=== PATIENT | female | born 1955 | race African-American/Black ===

== ENCOUNTER 2020-12-05 11:05 | Inpatient (IN) | payer OTHER ==
[~2020-12-05] VITALS: Ht 162.6 cm; Wt 87.7 kg
[2020-12-05] VITALS (7 sets, daily range): BP systolic 84–134; BP diastolic 26–97
--- NOTE | 2020-12-05 11:33 | NUR ---
1118 100MG ETOMIDATE GIVEN 1119 80MG ROCC GIVEN 1119 8.0 ETTUBE PLACED 22@ LIP
[2020-12-05 11:42] LABS: BE(vivo) 2.5 mmol/L (-2 to +3); HCO3 28.4 mmol/L (22.0-26.0); PCO2 48.8 mmHg (35.0-45.0); PO2 126.5 mmHg (80.0-100.0); pH 7.382 (7.360-7.450); sO2 98.4 % (92.0-98.0)
[2020-12-05 12:06] LABS: HEMATOCRIT 36.1 % (37.0-47.0); HEMOGLOBIN 11.1 gm/dL (12.0-15.0); MCH 26.2 pg (26.0-34.0); MCHC 30.9 g/dL (28.0-37.0); MCV 84.8 fL (80.0-100.0); PLATELET COUNT 383 thou/uL (150-400); RBC 4.25 mil/uL (4.20-5.00); RDW 18.6 % (10.5-14.5); WBC 21.9 thou/uL (4.0-11.0)
[2020-12-05 12:17] LABS: ANION GAP 4 mmol/L (7-16); BUN 35 mg/dL (7-18); CALCIUM 9.1 mg/dL (8.5-10.1); CHLORIDE 107 mmol/L (98-107); CO2 32 mmol/L (21-32); CREATININE 1.1 mg/dL (0.6-1.0); GLUCOSE 200 mg/dL (74-106); POTASSIUM 4.5 mmol/L (3.5-5.1); SODIUM 143 mmol/L (136-145)
[2020-12-05 12:20] LABS: INR 1.1; PROTIME 11.4 Seconds (9.3-11.4)
[2020-12-05 12:28] LABS: ALBUMIN 2.3 g/dL (3.4-5.0); SGOT 31 U/L (15-37); SGPT 33 U/L (30-65); TOTAL BILIRUBIN 0.3 mg/dL (0.2-1.0); TOTAL PROTEIN 6.2 g/dL (6.4-8.2); TROPONIN-I <0.06 ng/mL (<0.06)
[2020-12-05 12:48] LABS: URINE BILIRUBIN NEGATIVE (Negative); URINE BLOOD TRACE (Negative); URINE CLARITY CLEAR; URINE COLOR YELLOW; URINE GLUCOSE-RANDOM* 1+ (Negative); URINE KETONES NEGATIVE (Negative); URINE PROTEIN (DIPSTICK) TRACE (Negative); URINE SPECIFIC GRAVITY 1.015 (1.005-1.035); URINE UROBILINOGEN 0.2 E.U./dl (0.2-1.0)
[2020-12-05 12:49] LABS: URINE LEUKOCYTES-REFLEX 3+ (Negative); URINE NITRITE-REFLEX POSITIVE (Negative)
[2020-12-05 13:02] LABS: HYALINE CASTS 0-3 Few /LPF (None Seen); MUCUS 4-6 Moderate strn/LPF (None Seen); SQUAMOUS 4-10 Moderate /LPF (0-3)
[2020-12-05 13:03] LABS: BACTERIA-REFLEX >30 Many /HPF (None Seen); CRYSTALS None Seen /LPF (None Seen); URINE RBC 0-2 Rare /HPF (0-2); WBC CLUMPS Occasional (None Seen)
[2020-12-05 14:27] LABS: ABSOLUTE NEUTROPHILS 19.7 thou/uL (1.4-8.2); ANISOCYTOSIS 1+
--- NOTE | 2020-12-05 15:48 | NUR ---
VAT CONSULTED FOR CVAD. RIGHT NECK IS BRUISED AND HAS EDEMA UPON ASSESSMENT. LIJ IS WIDELY PATENT WITH USG. 25CM 6FR TL POWER JACC INSERTED TO 5CM EXTERNAL. STAT CXR ORDERED. BLEEDING AT SITE SO GAUZE APPLIED.
--- NOTE | 2020-12-05 17:07 | NUR ---
CXR LIJ TOO DEEP WITHDREW 2 CM, NOW RELEASED FOR IMMEDIATE USE PER PROTOCOL
--- NOTE | 2020-12-05 18:12 | NUR ---
PT ARRIVED TO ED WITH BANDAGE IN PLACE ON LEFT KNEE, ABRASION NOTED. PT ALSO HAD 2 BANDAIDS APPLIED TO BUTTOCKS COVERING STAGE I PRESSURE SORE.
[2020-12-05 18:38] LABS: CHOLESTEROL 159 mg/dL (<200); HDL CHOLESTEROL 62 mg/dL (>40); LDL CHOLESTEROL 87 mg/dL (<100); TC:HDL 2.6 Ratio (Not establshd); TRIGLYCERIDE 52 mg/dL (<150); VLDL 10 mg/dL (<40)
[2020-12-05 19:02] LABS: FOLIC ACID 5.8 ng/mL (8.6-58.9)
[2020-12-05] MEDS ORDERED: AMLODIPINE BESY10 MG PER TUBE (21:49)
[2020-12-05] MEDS ORDERED: CARAFATE 1 GM TA1 G1 PER TUBE (21:49)
[2020-12-05] MEDS ORDERED: FUROSEMIDE 20 M20 M1 PER TUBE (21:50)
[2020-12-05] MEDS ORDERED: CLOPIDOGREL75 MG PER TUBE (21:50)
[2020-12-05] MEDS ORDERED: FLUOXETINE HCL40 MG PER TUBE (21:50)
[2020-12-05] MEDS ORDERED: METOCLOPRAMIDE10 MG PER TUBE (21:52)
[2020-12-05] MEDS ORDERED: LISINOPRIL10 MG PER TUBE (21:52)
[2020-12-05] MEDS ORDERED: LIPITOR 40 MG T40 M1 PER TUBE (21:52)
[2020-12-05] MEDS ORDERED: LANTUS SOL100 UNIT/1 (21:52)
[2020-12-05] MEDS ORDERED: METOPROLOL TART25 MG PER TUBE (21:54)
[2020-12-05] MEDS ORDERED: POTASSIUM CHLO20 ME2 PO (21:54)
[2020-12-05] MEDS ORDERED: SPIRONOLACTONE25 MG PER TUBE (21:54)
[2020-12-05] MEDS ORDERED: PROTONIX40 M2 PER TUBE (21:54)
[2020-12-05] MEDS ORDERED: VELTASSA8.4 GM PO (21:55)
[2020-12-06] VITALS (83 sets, daily range): BP systolic 65–162; BP diastolic 20–53
[2020-12-06 04:58] LABS: HEMATOCRIT 36.3 % (37.0-47.0); HEMOGLOBIN 11.4 gm/dL (12.0-15.0); MCH 26.7 pg (26.0-34.0); MCHC 31.5 g/dL (28.0-37.0); MCV 84.7 fL (80.0-100.0); RBC 4.29 mil/uL (4.20-5.00); RDW 18.4 % (10.5-14.5); WBC 18.9 thou/uL (4.0-11.0)
[2020-12-06 05:13] LABS: CALCIUM 8.9 mg/dL (8.5-10.1); CREATININE 1.5 mg/dL (0.6-1.0)
--- NOTE | 2020-12-06 05:30 | NUR ---
PT ARRIVED TO ICU 2244, ADMISSION AND ASSESSMENT COMPLETED. PT VENTILATED, OG/PAT/IJ IN PLACE, RUNNING LEVOPHED AND PROPOFOL GTT. FEBRILE AT 102.2 AXI. FREQ TITRATION UP OF LEVO TO MAINTAIN BP. FIO2 DECREASED FROM 100% TO 80% AT 2344. 0330-SPOKE W/ASE MASTER MECHANIC CONIGLIO REGARDING POSITIVE SEPSIS SCREEN, CONTINUING TO HAVE INCREASED TEMPS, AND GRADUAL INCREASE IN HR. OBTAINED ORDER FOR FLUIDS, TYLENOL SUPPOSITORY, CORINNE GTT D/T HIGH LEVEL OF LEVO RUNNING. RECTAL TEMP PROBE PLACED, GAVE TYLENOL SUPP W/NO CHANGE, ADDED ICE PACKS. HR SHOWS GRADUAL DECREASE W/ADDITION OF FLUIDS.
[2020-12-06 05:31] LABS: HCO3 21.8 mmol/L (22.0-26.0); PCO2 34.2 mmHg (35.0-45.0); PO2 106.8 mmHg (80.0-100.0); pH 7.422 (7.360-7.450)
[2020-12-06 05:33] LABS: POTASSIUM 5.3 mmol/L (3.5-5.1)
--- NOTE | 2020-12-06 10:18 | NUR ---
ASSUMED CARE AT 0700 THIS MORNING, ASSESSMENT AND VITAL SIGNS COMPLETED PER ICU PROTOCOL. RN WILL CONTINUE TO MONITOR.
[2020-12-07] VITALS (67 sets, daily range): BP systolic 91–151; BP diastolic 29–54
[2020-12-07 03:05] LABS: HEMATOCRIT 31.7 % (37.0-47.0); HEMOGLOBIN 9.7 gm/dL (12.0-15.0); MCH 25.9 pg (26.0-34.0); MCHC 30.7 g/dL (28.0-37.0); MCV 84.3 fL (80.0-100.0); RBC 3.76 mil/uL (4.20-5.00); RDW 18.3 % (10.5-14.5); WBC 19.7 thou/uL (4.0-11.0)
[2020-12-07 03:13] LABS: CALCIUM 8.5 mg/dL (8.5-10.1); CREATININE 1.2 mg/dL (0.6-1.0)
[2020-12-07 03:19] LABS: POTASSIUM 3.7 mmol/L (3.5-5.1)
--- NOTE | 2020-12-07 20:17 | NUR ---
ASSUMED CARE AT 0700, ASSESSMENT AND VITAL SIGNS COMPLETED PER ICU PROTOCOL. DR. JOSUE ROUNDED THIS AM, PLAN OF CARE DISCUSSED. PT'S BEDSIDE THIS AFTERNOON, SPOKE WITH DR. WRIGHT.
[2020-12-08] VITALS (73 sets, daily range): BP systolic 112–161; BP diastolic 32–58
--- NOTE | 2020-12-08 02:57 | NUR ---
PATIENT REMAINS INTUBATED AND ON NO SEDATION. PATIENT HAS POSTIVIE CORNEAL/COUGH/GAG, OCCASION SPONTANEOUS EYE OPENING AND WILL OCCASIONALLY MOVE RIGHT HAND/ARM TOWARDS CHEST. PATIENT REQUIRED LEVO R/T HYPOTENSION FOR APPROX 1 HR AT 2238. PATIENT ASLO HAD DROP IN URINE OUTPUT THROUGHOUT THE DAY AND INTO THIS SHIFT. GRANITE BLOCK PAVER RENETTA NOTIFIED AND BOLUS OF 500CC NS WAS ORDERED. LEVO DRIP WAS ABLE TO BE WEANED POST BOLUS BUT URINE OUTPUT REMAINS INADEQUATE. BM X2 THIS SHIFT. SEE MAR/ICU CHARTING FOR ADDITIONAL DETAILS. CONTINUE TO FOLLOW NURSING POC.
[2020-12-08 03:47] LABS: HEMOGLOBIN 8.4 gm/dL (12.0-15.0); MCH 26.5 pg (26.0-34.0); MCHC 31.1 g/dL (28.0-37.0); RBC 3.18 mil/uL (4.20-5.00); RDW 18.7 % (10.5-14.5)
[2020-12-08 03:58] LABS: CALCIUM 8.7 mg/dL (8.5-10.1); CREATININE 1.2 mg/dL (0.6-1.0); POTASSIUM 3.4 mmol/L (3.5-5.1)
--- NOTE | 2020-12-08 07:20 | EKG ---
[place] [address] [facility] [address] ELECTROCARDIOGRAM REPORT Name: EMERY LOVE Room #: 241-P ADM IN M.R.#: [id number] Admission: 12/05/20 Attend Phys: Art Shell MD Discharge: Date of : 57 Report #: [id number] [facility] Test Date: 2020-12-05 Test Time: 12:41:00 Pat Name: EMERY LOVE Department: Room: 241 Gender: F Dispatch Associate: RONNY : 1955 Requested By: Case Villalobos Order Number: [id number] : Onur Mortensen Measurements Intervals [place] Rate: 60 P: [place]: QRS: 53 QRSD: 106 T: 57 QT: 652 QTc: 652 Interpretive Statements Artifact, suspect Atrial fibrillation Probable left ventricular hypertrophy Nonspecific T abnrm, anterolateral leads Prolonged QT interval No previous ECG available for comparison Electronically Signed On 12-08-2020 7:19:57 CDT by Onur Mortensen [email or web address] <ELECTRONICALLY SIGNED> By: Onur Mortensen MD, [facility] 12/08/20 0719 1241 1241 Onur Mortensen MD, FACC /EPI
--- NOTE | 2020-12-08 12:13 | NUR ---
TF recommendations: Vital AF is out of stock until 12/09. Use vital HP today, 12/08 at 30ml/hr and transition to vital AF 1.2 on 12/09 with goal of 45ml/hr.
[2020-12-08 12:42] LABS: BE(vivo) -4.3 mmol/L (-2 to +3); HCO3 20.6 mmol/L (22.0-26.0); PCO2 36.9 mmHg (35.0-45.0); PO2 61.2 mmHg (80.0-100.0); pH 7.365 (7.360-7.450); sO2 90.9 % (92.0-98.0)
--- NOTE | 2020-12-08 13:24 | NUR ---
WOUND CONSULT; THERE IS A STAGE 2 PRESSURE INJURY TO THE SACRUM. THERE IS BRUISING AN NON VIABLE TISSUE IN THE WOUNDBED. THERE IS SCANT SEROSANGINOUS DRAINAGE. THE LEFT KNEE IS A SKIN TEAR TYPE INUJURY WITH NO ACURE S/S OF INFECTION,A SMALL AMOUNT OF SEROSANGINOUS DRAINAGE IS SEEN. RECCOMENDATATIONS; -SACRUM APPLY ZGUARD COVER WITH A SACRAL FOAM DRESSING CHANGE M/W/F PRN -LEFT KNEE APPLY A BORDER FOAM DRESSING CHANGE M/W/F PRN. DISCUSSED WITH FLORECITA.
--- NOTE | 2020-12-08 14:09 | NUR ---
chart review. unable to visit with pt rt on vent. discuss during am rounds.h/x of stroke. cm spoke with her spouse valerie [phone], via phone call. intro to cm and dcp. he reported he no longer works, he has to help her at home. has [facility] and they helping him to found some more help in house, since it is just him and providing all cares, he needs some help. only been home from [facility] week. she has wheel chair, that needs to be looked at, since she fallen out of wheel chair before. have 6 steps but she on the lower level of home and take her in through garage there is no steps. hospital bed, bsc, and jayden lift. she was able to feed herself with her left hand. on puree diet. was just flushing peg tube. she has 2 kids who want to know how she is doing as well"/valerie. will cont following as needed for dc needs.
--- NOTE | 2020-12-08 15:40 | HC ---
[facility] [place] [address] CONSULTATION Name: EMERY LOVE Room #: 241-P ADM IN M.R.#: [id number] Admission: 12/05/20 Attend Phys: Art Shell MD Discharge: Date of : 57 Report #: [id number] THIS REPORT FOR: cc: FAM - Family physician unknown FAM - Family physician unknown Deric Rendon MD ~ DATE OF SERVICE: 12/06/2020 INFECTIOUS DISEASES CONSULTATION REASON FOR CONSULTATION: I was asked to evaluate concerning septic shock. HISTORY OF PRESENT ILLNESS: The patient is a 65-year-old with underlying history of coronary artery disease and recent stroke with right hemiparesis. She was released from acute rehab about a week ago to be with her family. She also has underlying diabetes. She was doing reasonably well until found yesterday morning unresponsive, lying on her back, bloody fluid in her mouth. Blood sugar was tested and was 18. EMS brought her to the Emergency Room where she was intubated. Initially had a right pulmonary infiltrate. She is hypotensive, now on vasopressors. Remains encephalopathic. Moderate amount of tracheal secretions. She has an indwelling Woodard catheter and a left IJ catheter that was placed. She has evidence of an Escherichia coli cystitis. She has had a PEG tube in place and has been receiving feedings from this. Also, the patient began to feed herself up until this event. She has a dense right hemiparesis. Upon presentation, she has been febrile up to 102.2 degrees. She is on FiO2 of 50%. She has had reasonable urine output. She is on IV fluids. There has been no witnessed seizure activity. ALLERGIES: LEVAQUIN reported, although she did receive a dose apparently yesterday on admission, unclear if it was given. MEDICATIONS: As noted on her MAR including vancomycin and Zosyn. PAST MEDICAL HISTORY: Stroke with right hemiparesis, coronary artery disease, coronary artery bypass grafting, diabetes. FAMILY HISTORY: Not available. SOCIAL HISTORY: Nonsmoker, no significant alcohol intake reported. REVIEW OF SYSTEMS: A 14-point reviewed and negative other than what has been described above. PHYSICAL EXAMINATION: VITAL SIGNS: Currently, temperature is 100.9, blood pressure is stable on [facility] [address] [place] [address] CONSULTATION Name: EMERY LOVE Room #: 241-P [facility].#: [id number] Admission: 12/05/20 Attend Phys: Art Shell MD Discharge: Date of : 57 Report #: [id number] Levophed drip at 16. She is intubated on FiO2 of 50%. GENERAL: She was obese. SKIN: Without rash or decubitus. No palpable adenopathy. HEENT: Eyes were without conjunctivitis or scleral icterus. Pupils were equal, round and reactive to light. Mouth without mucositis. Orally intubated. NECK: Supple, no thyromegaly or mass. LUNGS: Coarse breath sounds bilaterally. HEART: Regular, without murmur, gallop or rub. ABDOMEN: Soft, no masses or hepatosplenomegaly. PEG site was without drainage. GENITOURINARY: External genitalia without mass. She has indwelling Woodard catheter. RECTAL: Not performed. BACK: Without lesion. NEUROLOGIC: The patient was flaccid, did not respond to verbal or painful stimulus. Did have downgoing toes on plantar reflexes on the left. Right was equivocal. The patient was sedate. LABORATORY STUDIES: Reviewed. Creatinine 1.5. Liver function tests normal except for alkaline phosphatase 170. Troponin negative. Hemoglobin 11, white count 18, platelet count 389,000. COVID screen negative. Urinalysis, pyuria and bacteriuria with E. coli growing, sensitivities pending. Blood cultures 1 of 2 showing gram-positive cocci. Chest x-ray with bilateral pulmonary infiltrates. IMPRESSION: 1. A 65-year-old with diabetes, coronary artery disease and recent stroke with dense right hemiparesis, presents with anoxic encephalopathy following a hypoglycemic episode. Unclear as to the initial event whether she had a seizure or extended her stroke or was directly related to hypoglycemia. Now has suspected aspiration pneumonia with septic shock. In addition, has Escherichia coli cystitis. 2. Diabetes. 3. Atrial fibrillation. 4. Obesity. 5. Coronary artery disease. RECOMMENDATIONS: We will continue full ICU support, septic protocol with broad-spectrum IV antibiotic therapy while awaiting cultures of blood, sputum and sensitivities from the E. coli identified from her urine. Neurology is following and will need to assess for evidence of seizure activity. [address] [address] CONSULTATION Name: EMERY LOVE Room #: 241-P [facility] IN M.R.#: [id number] Admission: 12/05/20 Attend Phys: Art Shell MD Discharge: Date of : 57 Report #: [id number] We will discuss further with nursing staff regarding treatment plan. <ELECTRONICALLY SIGNED> By: Deric Rendon MD 12/08/20 1540 1608 1856 Deric Rendon MD /nt
--- NOTE | 2020-12-08 16:17 | EKG ---
[address] [place] [address] ELECTROCARDIOGRAM REPORT Name: EMERY LOVE Room #: 241-P ADM IN M.R.#: [id number] Admission: 12/05/20 Attend Phys: Art Shell MD Discharge: Date of : 57 Report #: [id number] [facility] Test Date: 2020-12-08 Test Time: 12:04:37 Pat Name: EMERY LOVE Department: Room: 241 P Gender: F Restuarant Crew Worker: FREDDY : 1955 Requested By: Art Shell Order Number: [id number] MD: Onur Mortensen Measurements Intervals [place] Rate: 95 P: 81 MN: 210 QRS: 50 QRSD: 93 T: 223 QT: 394 QTc: 496 Interpretive Statements Second degree AV block, Mobitz II Sinus pause Abnormal R-wave progression, late transition Nonspecific T abnormalities, lateral leads Borderline prolonged QT interval Compared to ECG 12/05/2020 12:41:00 Second-degree AV block, Mobitz type I (Wenckebach) now present T-wave abnormality now present Electronically Signed On 12-08-2020 16:17:18 CDT by Onur Mortensen [email or web address] <ELECTRONICALLY SIGNED> By: Onur Mortensen MD, FACC 12/08/20 1617 1204 1204 Onur Mortensen MD, FAC /EPI
--- NOTE | 2020-12-08 19:38 | NUR ---
PT IS NOT PROGRESSING TOWARDS DISCHARGE AT THIS TIME, EEG WAS COMPLETED TODAY AND STILL AWAITING READ AT THIS TIME, PT HAD FACETIME WITH THE DAUGHTER TODAY AT 0800. DTR WANTED TO VISIT, RN REMINDED DTR OF VISITATION GUIDELINE, AND ASKED COMMERCIAL DIVER IF CONSIDERATIONS CAN BE MADE. PEEP WAS INCREASED FROM 5 TO 10, FIO2 FROM 50 TO 60. TUBE FEEDING WAS STARTED VITAL AF 1.2. DIETARY SAID ITS OKAY TO DO VITAL HP FOR TODAY SINCE SHORTAGE. WOUND CARE TEAM SAW THE PT TODAY WELL
[2020-12-09] VITALS (34 sets, daily range): BP systolic 142–187; BP diastolic 48–79
[2020-12-09 03:36] LABS: HEMATOCRIT 26.1 % (37.0-47.0); HEMOGLOBIN 8.1 gm/dL (12.0-15.0); MCH 26.2 pg (26.0-34.0); MCHC 30.8 g/dL (28.0-37.0); RBC 3.07 mil/uL (4.20-5.00); RDW 18.9 % (10.5-14.5); WBC 18.1 thou/uL (4.0-11.0)
[2020-12-09 03:43] LABS: CALCIUM 8.8 mg/dL (8.5-10.1); POTASSIUM 3.5 mmol/L (3.5-5.1)
[2020-12-09 05:29] LABS: HCO3 18.6 mmol/L (22.0-26.0); PCO2 33.2 mmHg (35.0-45.0); PO2 105.7 mmHg (80.0-100.0); pH 7.366 (7.360-7.450); sO2 97.7 % (92.0-98.0)
--- NOTE | 2020-12-09 07:35 | NUR ---
ASSUMED CARE AT 1900. OVERNIGHT MAX TEMP OF 99.3. THREE EPISODES OF EMESIS OVERNIGHT; TURNED TUBE FEED OFF AT 0330 AND PLACED OG TO LIS; DR. JOSUE ORDERED A KUB THIS AM. IVF INFUSING OVERNIGHT; GAVE TWO BAGS OF POTASSIUM REPLACEMENT. SHIFT REPORT GIVEN 0700, PT NOT PROGRESSING TOWARDS GOALS.
--- NOTE | 2020-12-09 19:09 | EEG ---
[facility] [place] [address] ELECTROENCEPHALOGRAM Name: EMERY LOVE Room #: 241-P ADM IN M.R.#: [id number] Admission: 12/05/20 Attend Phys: Art Shell MD Discharge: Date of : 57 Report #: [id number] THIS REPORT FOR: //name// DATE OF SERVICE: 12/08/2020 This patient's EEG is being done to evaluate the patient for altered mental status. EEG was done by placing the electrode by standard 10-20 system of electrode placement. Both referential and sequential montages were used for recording. Background activity is difficult to determine because lot of artifact is present. It is low voltage. It looks like it is about 6 Hz and 10 microvolt. Photic stimulation is unremarkable. IMPRESSION: This patient's EEG is abnormal because it is low voltage and is poorly formed. That finding can be consistent with dementia, encephalopathy, effect of psychotropic medication. No active epileptiform activity was noticed during this record. Thank you very much for this referral. <ELECTRONICALLY SIGNED> By: Jared Clark MD 12/09/20 1909 19 27 Jared Clark MD /nt
--- NOTE | 2020-12-09 19:47 | NUR ---
PT NOT PROGRESSING TOWARDS DISCHARGE AT THIS TIME, THOUGH PT IS MORE RESPONSIVE REFLEXVIELY, NO PURPOSEFUL MOVEMENT HAS BEEN OBSERVED FROM BY THE RN THIS SHIFT. EEG HAS NOT BEEN DICTATED AT THIS TIME, PT HAS COPIOUS ORAL SECRETION. TPN WILL BE STARTED TODAY. POSS SBO WAS NOTIFIED TO HOSPITALIST, HOSPITALIST STATED THAT HE WILL SPEAK WITH THE FAMILY MEMBER REGARDING CURRENT CLINICAL PICTURE. URINE OUTPUT WAS 1200 AFTER LASIX 40MG, OG SET TO LIS, INCREASING BLOOD PRESSURE SINCE YESTERDAY. HYDRALAZINE ORDERED FOR Q6H. RN ADMINISTERD PER ORDER. RN SIGNING OFF AT THIS TIME
[2020-12-10] VITALS (20 sets, daily range): BP systolic 126–171; BP diastolic 37–64
--- NOTE | 2020-12-10 03:22 | NUR ---
ASSUMED CARE AT 1900. PT WILL SPONT OPEN EYES BUT DOESN'T LOOK AROUND TO VOICES, DOES NOT SQUEEZE FINGERS TO COMMAND BUT WILL OCCASIONALLY TWITCH HANDS. MODERATE AMOUNT LOOSE GREEN STOOL. CONTINUES TO HAVE HYPOACTIVE BOWEL SOUNDS, OG TO LIS W/ LIGHT GREEN OUTPUT. PT IS VERY STILL/DIFFICULT TO MOVE, LEFT LEG SLIGHTLY DRAWN UP/CONTRACTED. 3+EDEMA NOTED IN BILATERAL HANDS/ARMS. WILL CONTINUE TO MONITOR.
[2020-12-10 05:10] LABS: BE(vivo) -4.3 mmol/L (-2 to +3); HCO3 19.6 mmol/L (22.0-26.0); PCO2 31.4 mmHg (35.0-45.0); PO2 84.2 mmHg (80.0-100.0); pH 7.413 (7.360-7.450); sO2 96.6 % (92.0-98.0)
[2020-12-10 05:52] LABS: ALBUMIN 1.6 g/dL (3.4-5.0); CALCIUM 8.7 mg/dL (8.5-10.1); CREATININE 0.8 mg/dL (0.6-1.0); TOTAL BILIRUBIN 0.4 mg/dL (0.2-1.0); TOTAL PROTEIN 6.4 g/dL (6.4-8.2)
[2020-12-10 05:56] LABS: MAGNESIUM 1.9 mg/dL (1.8-2.4); PHOSPHORUS 1.6 mg/dL (2.5-4.9)
[2020-12-10 05:57] LABS: HEMATOCRIT 25.8 % (37.0-47.0); HEMOGLOBIN 8.2 gm/dL (12.0-15.0); MCH 26.9 pg (26.0-34.0); MCV 84.2 fL (80.0-100.0); RBC 3.06 mil/uL (4.20-5.00); RDW 18.6 % (10.5-14.5)
[2020-12-10 06:17] LABS: POTASSIUM 2.9 mmol/L (3.5-5.1)
--- NOTE | 2020-12-10 10:05 | NUR ---
1000- Patients spouse here in room. Nurse updated him on patients plan of care and answered his questions.
--- NOTE | 2020-12-10 10:46 | NUR ---
1046- NURSE CALLED NEURO TO ROUND ON PATIENT TODAY PER DR. JOSUE REQUEST.
--- NOTE | 2020-12-10 12:58 | NUR ---
PATIENT IS STILL INTUBATED, NOT SEDATED BUT WITH LIMITED COMMAND FOLLOWING. OT HAS CHECKED ON PATIENT FOR THE PAST [address] ON HOLD AND WILL NEED NEW ORDERS ONCE PATIENT IS ABLE TO PARTICIPATE.
[2020-12-11] VITALS (26 sets, daily range): BP systolic 131–165; BP diastolic 44–65
[2020-12-11 04:31] LABS: BE(vivo) -2.2 mmol/L (-2 to +3); HCO3 22.4 mmol/L (22.0-26.0); PCO2 37.4 mmHg (35.0-45.0); PO2 74.8 mmHg (80.0-100.0); pH 7.395 (7.360-7.450); sO2 95.1 % (92.0-98.0)
[2020-12-11 05:52] LABS: HEMOGLOBIN 8.3 gm/dL (12.0-15.0); MCH 27.4 pg (26.0-34.0); MCHC 32.2 g/dL (28.0-37.0); MCV 85.2 fL (80.0-100.0); RBC 3.05 mil/uL (4.20-5.00); RDW 18.6 % (10.5-14.5); WBC 10.2 thou/uL (4.0-11.0)
[2020-12-11 06:28] LABS: ALBUMIN 1.5 g/dL (3.4-5.0); CALCIUM 8.7 mg/dL (8.5-10.1); CREATININE 0.5 mg/dL (0.6-1.0); MAGNESIUM 1.8 mg/dL (1.8-2.4); PHOSPHORUS 1.1 mg/dL (2.5-4.9); POTASSIUM 3.6 mmol/L (3.5-5.1); TOTAL BILIRUBIN 0.4 mg/dL (0.2-1.0); TOTAL PROTEIN 6.3 g/dL (6.4-8.2)
--- NOTE | 2020-12-11 10:23 | NUR ---
Assumed care at 0700, assessment and vital signs completed per ICU protocol. RN will continue to monitor.
--- NOTE | 2020-12-11 10:40 | NUR ---
discussed during am rounds, possible dr machuca to consult.
--- NOTE | 2020-12-11 12:41 | NUR ---
WOUND CARE F/U; THE RIGHT KNEE AND SACRUM WOUNDS ARE IMPROVING. NO S/S OF INFECTION. THE QUALITY OF THE WOUND BEDS ARE IMPROVING. RN ASSISTED ME TODAY. THE PATIENT REMAINS ON A OFFLOADING SURFACE AND BEING TURNED APPROPRIATLY. RECOMMENDATIONS; NO CHANGES RN PRESENT.
[2020-12-12] VITALS (25 sets, daily range): BP systolic 66–153; BP diastolic 39–61
[2020-12-12 05:03] LABS: HEMATOCRIT 24.7 % (37.0-47.0); HEMOGLOBIN 8.2 gm/dL (12.0-15.0); MCH 27.6 pg (26.0-34.0); MCHC 33.1 g/dL (28.0-37.0); MCV 83.4 fL (80.0-100.0); RBC 2.96 mil/uL (4.20-5.00); RDW 18.1 % (10.5-14.5); WBC 9.9 thou/uL (4.0-11.0)
[2020-12-12 05:14] LABS: CALCIUM 8.7 mg/dL (8.5-10.1); CREATININE 0.6 mg/dL (0.6-1.0); MAGNESIUM 1.6 mg/dL (1.8-2.4); PHOSPHORUS 2.8 mg/dL (2.5-4.9); POTASSIUM 3.7 mmol/L (3.5-5.1)
[2020-12-12 08:22] LABS: BE(vivo) -2.3 mmol/L (-2 to +3); HCO3 22.4 mmol/L (22.0-26.0); PCO2 38.2 mmHg (35.0-45.0); pH 7.386 (7.360-7.450)
--- NOTE | 2020-12-12 11:35 | NUR ---
If continues to tolerate trickle tube feed with addition of reglan, continue to increase as tolerated to goal 45ml/hr if within pts goals of care
--- NOTE | 2020-12-12 13:00 | NUR ---
chart review. am rounds, going for mri today. on vent, nutritional support. cm tried calling valerie. no answer. no anticipated dc over weekend. will cont following as needed for dc needs.
--- NOTE | 2020-12-12 19:34 | NUR ---
PATIENT TRANSPORTED TO MRI WITH THIS RN AND RT AT 1400. RETURNED BACK TO ICU ROOM 241 AT 1445. NO ISSUES DURING TRANSPORT.
[2020-12-13] VITALS (24 sets, daily range): BP systolic 116–168; BP diastolic 32–66
[2020-12-13 04:47] LABS: CALCIUM 8.7 mg/dL (8.5-10.1); CREATININE 0.6 mg/dL (0.6-1.0); MAGNESIUM 1.7 mg/dL (1.8-2.4); PHOSPHORUS 2.7 mg/dL (2.5-4.9); POTASSIUM 3.4 mmol/L (3.5-5.1)
[2020-12-13 05:02] LABS: HEMATOCRIT 24.2 % (37.0-47.0); HEMOGLOBIN 7.7 gm/dL (12.0-15.0); MCH 27.1 pg (26.0-34.0); MCV 84.8 fL (80.0-100.0); RBC 2.85 mil/uL (4.20-5.00); RDW 18.7 % (10.5-14.5); WBC 12.7 thou/uL (4.0-11.0)
--- NOTE | 2020-12-13 06:35 | NUR ---
PT REMAINS ON THE VENT. OPENS EYES SPONTENEOUS BUT DOESN'T FOLLOW COMMANDS. NO SEDATION. AFEBRILE. VSS. REPOSITIONED Q2H. TOLERATING TUBE FEEDS. SMALL BM THIS TOD. PAT IN PLACE WITH MINIMAL U/O. WILL KEEP MONITORING.
[2020-12-13 15:06] LABS: BE(vivo) -0.4 mmol/L (-2 to +3); HCO3 23.2 mmol/L (22.0-26.0); PCO2 33.1 mmHg (35.0-45.0); PO2 101.1 mmHg (80.0-100.0); pH 7.463 (7.360-7.450)
--- NOTE | 2020-12-13 19:39 | NUR ---
ASSUMED CARE 0700. SPOKE W/PT .. UPDATED REGARDING CURRENT STATUS. ALSO TOLD TO EXPECT A CALL FROM DR. IGLESIAS WHO STATED HE PLANNED TO SPEAK WITH HIM. PT STILL NOT FOLLOWING COMMONDS OR TRACKING. VSS.
[2020-12-14] VITALS (24 sets, daily range): BP systolic 125–163; BP diastolic 25–57
[2020-12-14 03:28] LABS: ALBUMIN 1.3 g/dL (3.4-5.0); CALCIUM 8.4 mg/dL (8.5-10.1); CREATININE 0.7 mg/dL (0.6-1.0); DIRECT BILIRUBIN 0.1 mg/dL (<0.1-0.2); MAGNESIUM 1.6 mg/dL (1.8-2.4); PHOSPHORUS 2.3 mg/dL (2.5-4.9); POTASSIUM 3.7 mmol/L (3.5-5.1); TOTAL BILIRUBIN 0.3 mg/dL (0.2-1.0); TOTAL PROTEIN 6.1 g/dL (6.4-8.2)
[2020-12-14 05:20] LABS: HEMATOCRIT 23.1 % (37.0-47.0); HEMOGLOBIN 7.2 gm/dL (12.0-15.0); MCH 26.6 pg (26.0-34.0); MCHC 31.3 g/dL (28.0-37.0); MCV 84.9 fL (80.0-100.0); RBC 2.73 mil/uL (4.20-5.00); RDW 18.6 % (10.5-14.5); WBC 15.4 thou/uL (4.0-11.0)
--- NOTE | 2020-12-14 19:01 | NUR ---
ASSUMED CARE 0700. PT CONTINUES W/O ANY PURPOSEFUL MOVEMENT. DOES NOT TRACK W/EYES. AT BEDSIDE 1600. STATES TO THIS NURSE, "I KNOW WHAT DECISION I HAVE TO MAKE AND DONT KNOW WHAT TO DO ABOUT IT." NOTIFED DR. RODRIGUEZ. PALLIATIVE CARE CONSULT ORDERED. FEEL WOULD BENEFIT FROM CONVERSATION W/DR. SUNSHINE REGARDING PALLIATIVE CARE APPROACH THE FAMILY SEEMS TO BE LEADING IN THE DIRECTION OF COMFORT MEASURES.
[2020-12-15] VITALS (13 sets, daily range): BP systolic 120–162; BP diastolic 36–58
[2020-12-15 03:05] LABS: GLYCOHEMOGLOBIN (HGB A1C) 7.4 % (4.8-5.6)
[2020-12-15 05:25] LABS: HEMOGLOBIN 7.2 gm/dL (12.0-15.0); MCH 26.3 pg (26.0-34.0); MCHC 31.1 g/dL (28.0-37.0); MCV 84.8 fL (80.0-100.0); PLATELET COUNT 328 thou/uL (150-400); RBC 2.72 mil/uL (4.20-5.00); RDW 18.3 % (10.5-14.5); WBC 16.5 thou/uL (4.0-11.0)
[2020-12-15 05:35] LABS: CALCIUM 8.5 mg/dL (8.5-10.1); CREATININE 0.6 mg/dL (0.6-1.0); POTASSIUM 3.6 mmol/L (3.5-5.1)
[2020-12-15 06:57] LABS: ABSOLUTE NEUTROPHILS 13.4 thou/uL (1.4-8.2); ANISOCYTOSIS 2+; MYELOCYTES 1 %; NUCLEATED RBCS 3 /100WBC
--- NOTE | 2020-12-15 14:58 | NUR ---
chart review. am rounds. bedside nurse report, dr machuca consult. cm called spouse valerie, no answer. left message request call back. avi remains on vent with tf nutritional support. will cont following as needed for dc needs.
--- NOTE | 2020-12-15 19:40 | NUR ---
PT STILL WITHOUT ANY PURSPOSEFUL MOVEMENT. 1300 SPOKE W/PT FAMILY TODAY REGARDING PT STATUS. STATES HE WISHES TO HAVE A MEETING W/PHYSICIANS OF CARE TEAM BEFORE MAKING ANY DECSIONS. DR. JONG BORJAS REGARDING FAMILY REMARS. JONG AT BEDSIDE 1700. STATED HE IS ARRANGING A MEETING W/FAMILY ON DISCUSSING POTENTIAL COMFORT CARE IN NEAR FUTURE. VSS. SMALL BM TODAY. CONTINUES TO TOLERATE TUBE FEEDS.
[2020-12-16] VITALS (30 sets, daily range): BP systolic 136–171; BP diastolic 35–77
[2020-12-16 07:59] LABS: BE(vivo) 4.2 mmol/L (-2 to +3); HCO3 29.1 mmol/L (22.0-26.0); PCO2 45.6 mmHg (35.0-45.0); PO2 69.8 mmHg (80.0-100.0); pH 7.423 (7.360-7.450); sO2 94.2 % (92.0-98.0)
--- NOTE | 2020-12-16 08:30 | NUR ---
discussed during am rounds, dr machuca consult and going to visit with and kids. she cont on vent, nutritional support. will cont following as needed for dc needs.
--- NOTE | 2020-12-16 09:46 | NUR ---
Nutrition: If care continues, REC increase tube feeds to 55 mL/hr to better meet needs and supplement vitamin D and folate for deficiency.
--- NOTE | 2020-12-16 10:23 | NUR ---
Assumed care at 0700, assessment and vital signs completed per ICU protocol. RN will continue to monitor.
--- NOTE | 2020-12-16 17:00 | NUR ---
dr machuca met with spouse and family. plan to palliative extubate this evening and depending on how she does over nigh. might need to look into hospice house.
[2020-12-17] VITALS (10 sets, daily range): BP systolic 123–142; BP diastolic 36–70
--- NOTE | 2020-12-17 09:38 | NUR ---
am rounds. cm visited with valerie king via phone call. ok to send referral to hospice house to [facility]. referral to be sent.
--- NOTE | 2020-12-17 09:46 | NUR ---
ASSUMED CARE OF PT AT 0700 PT ON COMFORT CARE AND HAS ORDERS TO GO TO THE FLOOR NO CHANGE IN STATUS
--- NOTE | 2020-12-17 13:34 | NUR ---
PT TRANSFERED TO FLOOR PER BED FROM ICU AT 1045 IN STABLE CONDITION. PT NONVERBAL AND NON RESPONSIVE.PT ON O2 AT 4LNC.REASSESSMENT AND ORAL CARE DONE.BED BATH GIVEN WITH PHOTOGRAPHER FINISH ASSIST. WOUND CARE DONE WITH PICTURE TAKEN TO COCCYX WOUND.REPOSITIONG PT FOR COMFORT.GROUNDS MAINTENANCE SUPERVISOR HERE AND SAID PT WILL BE TRANSFERED TODAY WHEN BREAKER BOSS ARRANGE FOR TRANSPORT.REPORT WILL BE GIVEN PRIOR TO PT DC TO HOSPICE HOUSE TODAY.
--- NOTE | 2020-12-17 14:12 | NUR ---
PT ACCEPTED FOR ADMISSION TO [facility] THIS DAY. AMBULANCE TRANSPORT ARRANGED VIA [facility] AT 1430. CM CALLED AND NOTIFIED SPOUSE HE IS AWARE AND AGREEABLE. OUTSIDE HOSPITAL DNR FORM COMPLETED. NURSE TO ALL REPORT TO . NO OTHER CM INTERVETNION INDICATED. CASE CLOSED.
== END 2020-12-17 14:45 | disposition hospice, home (50) | DRG 870 ==
LOC: ER 11:05 → EROBS 17:19 → ICU 17:19 → 4W 12-17 11:12
PROVIDERS: Emergency Medicine; Internal Medicine; Internal Medicine Pulmonary Disease; ADMIT Hospitalist; ATTEND Hospitalist
DX: A41.1 Sepsis due to other specified staphylococcus (principal); J96.01 Acute respiratory failure with hypoxia; R65.21 Severe sepsis with septic shock; J69.0 Pneumonitis due to inhalation of food and vomit; G93.41 Metabolic encephalopathy; G93.1 Anoxic brain damage, not elsewhere classified; I50.30 Unspecified diastolic (congestive) heart failure; M31.9 Necrotizing vasculopathy, unspecified; E46 Unspecified protein-calorie malnutrition; I69.351 Hemiplegia and hemiparesis following cerebral infarction affecting right dominant side; A41.81 Sepsis due to Enterococcus; Z20.822 Contact with and (suspected) exposure to COVID-19; I25.10 Atherosclerotic heart disease of native coronary artery without angina pectoris; E11.649 Type 2 diabetes mellitus with hypoglycemia without coma; E66.9 Obesity, unspecified; I48.91 Unspecified atrial fibrillation; T68.XXXA Hypothermia, initial encounter; I95.9 Hypotension, unspecified; R13.10 Dysphagia, unspecified; B96.20 Unspecified Escherichia coli [E. coli] as the cause of diseases classified elsewhere; E87.5 Hyperkalemia; N30.90 Cystitis, unspecified without hematuria; E78.5 Hyperlipidemia, unspecified; I44.1 Atrioventricular block, second degree; D64.9 Anemia, unspecified; I69.322 Dysarthria following cerebral infarction; R53.81 Other malaise; Z66 Do not resuscitate; Z51.5 Encounter for palliative care; Z88.1 Allergy status to other antibiotic agents; Z95.1 Presence of aortocoronary bypass graft; Z68.33 Body mass index [BMI] 33.0-33.9, adult; I69.328 Other speech and language deficits following cerebral infarction; Z93.1 Gastrostomy status
CPT/HCPCS: 10078; 10204